=== PATIENT | female | born 1930 | race Caucasian/White ===

== ENCOUNTER 2017-03-18 15:21 | Outpatient (CLI) | payer MEDICARE ==
--- NOTE | 2017-03-18 17:27 | CT ---
EXAM: CT ANGIOGRAM OF THE THORACIC AORTA AND ABDOMINAL AORTA CT ANGIOGRAM OF THE PELVIS 03/18/17 HISTORY: Evaluate for aneurysm. Abnormal radiograph in [place]. COMPARISON: None. TECHNIQUE: CT angiogram of the thoracic and abdominal aorta performed in the axial plane. Sagittal and coronal t hree-dimensional reformatted images are submitted for interpretation. CORRELATION: Lumbar spine radiograph FINDINGS: CHEST CT: No mediastinal mass, lymphadenopathy, or hematoma. Heart is enlarged. There are coronary artery calci fications. No significant pericardial fluid. Trachea and central bronchi are patent. Mild emphysematous changes involving both upper lobes. Focal area of atelectasis in the lingula. No suspicious masses or consolidation. No pleural effusion. No pn eumothorax. ABDOMEN CT: There is hypoattenuation of the liver due to fatty infiltration. Hypodensities in the right hepatic l obe are too small to characterize. The spleen, pancreas, and adrenal glands have appropriate arterial phase enhancement. There is symmetric enhancement of the kidneys. There is a simple cyst in the left kidney measuring 13 mm. Bilaterally, no obstructive uropathy. No gastrohepatic, retrocrural or periportal lymphadenopathy. No mesenteric mass, lymphadenopathy, free air or free fluid. Limited evaluation of the alimentary can al due to lack of oral contrast. Questionable mass in the gastric cardia. Small hiatal hernia is note d. Multiple normal caliber small bowel loops. Ileocecal junction appears to be normal. Colon is unrem arkable. There are diverticula in the sigmoid colon, without evidence of diverticulitis. PELVIC CT: No mass, lymphadenopathy, free air or free fluid. Urinary bladder is unremarkable. Uterus and adnexal structures are unremarkable. CT ANGIOGRAM: The ascending thoracic aorta, aortic arch, and descending thoracic aorta have an overall normal cours e and caliber. There is atherosclerosis with a combination of calcified and noncalcified plaque. No a neurysm. No dissection. The origins of the great vessels of the neck appear to be grossly unremarkabl e. The suprarenal abdominal aorta demonstrate atherosclerosis without evidence of aneurysmal dilatati on. There is short segment mild stenosis involving the abdominal aorta just inferior to the origin of both renal arteries. Beyond this area of narrowing, there is evidence of aneurysmal dilatation measu ring 3.4 cm anterior posterior x 3.4 cm mediolateral x 5.6 cm craniocaudal. There is a predominantly noncalcified thrombus in this region of aneurysmal dilatation. Distal to this area, no evidence of an eurysmal dilatation. The aortic bifurcation and visualized iliac arteries demonstrate atherosclerotic disease. The celiac artery origin, superior mesenteric artery origin, and inferior mesenteric artery origin are unremarkable. Calcification in both renal artery ostia without significant stenosis. IMPRESSION: Aneurysmal dilatation of the infrarenal abdominal aorta. Consultation with cardiovascular surgery is recommended. POS: [facility]
== END 2017-03-18 15:22 | disposition home or self-care (01) ==
LOC: CT 15:21
PROVIDERS: ATTEND Nurse Practitioner Family
DX: Z13.6 Encounter for screening for cardiovascular disorders (principal); I71.4 Abdominal aortic aneurysm, without rupture
CPT/HCPCS: 71275; 74174

== ENCOUNTER 2017-10-15 12:31 | Outpatient (CLI) | payer MEDICARE ==
--- NOTE | 2017-10-15 14:40 | CT ---
CT ANGIOGRAM ABDOMEN AND PELVIS WITH IV CONTRAST AND 3D RECONSTRUCTIONS: Date: 10-15-17 History: Abdominal aortic aneurysm. Comparison: 03-18-17 FINDINGS: Dual-lead cardiac pacemaking leads are noted in place within the right ventricle and right atrial gaby endage. Atherosclerotic vascular calcifications and plaque are seen within the lower thoracic aorta as well a s involving the abdominal aorta and iliac arteries. Again noted is an infrarenal abdominal aortic ane urysm with essentric atherosclerotic plaque. The aneurysm on today's examination measures 3.8 cm AP x 3.2 cm transverse x 3.6 cm craniocaudal. Previous measurements were 3.5 cm AP x 3.4 cm transverse. T he craniocaudal dimension on the prior study was 5.7 cm. However, the aneurysm length on today's exam ination does not appear to be as large by measurement as noted above. The bilateral common iliac, ext ernal iliac, and common femoral arteries are patent with mild atherosclerotic plaque. The right inter nal iliac artery is patent, but there is moderate to severe narrowing at the origin of the left inter nal iliac artery. Single bilateral renal arteries are again present with atherosclerotic calcificatio ns present with mild to moderate narrowing at the origin and proximal right renal artery. There is mi ld to moderate narrowing at the origins of the celiac and superior mesenteric arteries. There is eith er severe focal narrowing at the origin versus occlusion at the origin of the LUCIANO. There is atelectasis in the region of the lingula. Lung bases are otherwise clear. Subcentimeter too small to characterize hypodense lesions are again seen in the right hepatic lobe. There is stable hypodense bilateral renal lesions, statistically likely representing small cysts. The spleen, fatty replaced pancreas, bilateral adrenal glands and decompressed urinary bladder demons trate a normal CT appearance. There is colonic diverticulosis. There is right convex scoliosis of the lumbar spine with prominent degenerative changes throughout th e lumbar spine. There is right lateral subluxation of L3 on L4. These findings are stable compared to prior exam. IMPRESSION: 1. Abdominal aortic aneurysm which does measure larger in size in AP dimensions measuring 3.8 cm on t gallo's exam and previously measured 3.5 cm. 2. Prominent atherosclerotic plaque seen throughout the abdominal aorta, iliac arteries, and involvin g the mesenteric vessels as described above. 3. Remainder of the findings are stable from prior examination. POS: [facility]
== END 2017-10-15 12:32 | disposition home or self-care (01) ==
LOC: CT 12:31
PROVIDERS: ATTEND Thoracic Surgery (Cardiothoracic Vascular Surgery)
DX: I71.4 Abdominal aortic aneurysm, without rupture (principal); I70.0 Atherosclerosis of aorta; I70.8 Atherosclerosis of other arteries; M41.86 Other forms of scoliosis, lumbar region; M47.896 Other spondylosis, lumbar region; S33.130A Subluxation of L3/L4 lumbar vertebra, initial encounter
CPT/HCPCS: 74174; 82565

== ENCOUNTER 2020-02-22 21:54 | Observation (INO) | payer MEDICARE ==
[2020-02-22] MEDS ORDERED: Lorazepam 2 MG/ML VIAL ONE (22:34)
[2020-02-22] MEDS ORDERED: Meclizine HCl 25 MG TAB ONE (22:36)
[2020-02-22 22:51] LABS: #Basophils 0.1 thou/uL (0.0-0.2); #Eosinphils 0.2 thou/uL (0.0-0.7); #Lymphocytes 1.9 thou/uL (1.20-3.40); #Monocytes 0.7 thou/uL (0.11-0.59); #Neutrophils 6.8 thou/uL (1.40-6.50); %Basophils 0.7 % (0.0-1.0); %Eosinophils 1.8 % (0.0-10.0); %Lymphocytes 19.4 % (21.0-51.0); %Monocytes 6.9 % (0.0-10.0); %Neutrophils 71.3 % (42.0-75.0); Hemoglobin 13.9 g/dL (12.0-16.0); Mean Corpuscular HGB CONC 32.6 g/dL (32.0-36.0); Mean Corpuscular Hemoglobin 32.1 pg (27.0-31.0); Mean Corpuscular Volume 98.6 fL (78.0-98.0); Mean Platelet Volume 8.1 fL (7.4-10.4); Platelet Count 182 thou/uL (130-400); RBC Distribution Width 11.9 % (11.5-14.5); Red Blood Cell (RBC) Count 4.33 mill/uL (4.20-5.40); White Blood Cell (WBC) Count 9.6 thou/uL (4.8-10.8)
[2020-02-22 23:12] LABS: ALT (SGPT) 7 U/L (8-55); AST (SGOT) 15 U/L (5-34); Albumin 3.7 g/dL (3.4-4.8); Alkaline Phosphatase 94 U/L (40-110); Anion Gap 17 mmol/L (10-20); BUN (Urea Nitrogen) 21 mg/dL (9.8-20.1); Bilirubin, Total 0.5 mg/dL (0.2-1.2); Calc. Creatinine Clearance 0 mL/min (70-130); Carbon Dioxide 24 mmol/L (23-31); Chloride 102 mmol/L (98-107); Globulin 3.4 g/dL (2.4-3.5); Glucose 201 mg/dL (83-110); Potassium 3.7 mmol/L (3.5-5.1); Protein, Total 7.1 g/dL (6.0-8.3); Sodium 139 mmol/L (136-145)
[2020-02-23 01:14] LABS: Bacteria/HPF None Seen HPF (None Seen); Bilirubin Negative (Negative); Blood, Urine Trace (Negative); Clarity Clear (Clear); Glucose, Urine (Dipstick) 200 mg/dL (Negative); Ketone, Urine Negative (Negative); Leukocyte Negative Leu/uL (Negative); Nitrite Negative (Negative); Protein, Urine (Dipstick) Negative (Neg-Trace); Squamous Epithelial None Seen HPF (0-3); Urobilinogen Normal mg/dL (Less than 2); WBC/HPF None Seen HPF (0-3); pH, Urine 7.5 (5.0-9.0)
[2020-02-23] MEDS ORDERED: Aspirin 325 MG TAB ONE (02:34)
[2020-02-23] MEDS ORDERED: Labetalol HCl 100 MG/20 ML VIAL SLOW IVP PRN (02:55)
[2020-02-23] MEDS ORDERED: Calcium Carbonate 500 MG ChewTAB PO PRN (03:08)
[2020-02-23] MEDS ORDERED: Acetaminophen 650 MG Suppository PR PRN (03:08)
[2020-02-23] MEDS ORDERED: Ondansetron ODT 4 MG TAB PO PRN (03:08)
[2020-02-23] MEDS ORDERED: Acetaminophen 325 MG TAB PO PRN (03:08)
[2020-02-23] MEDS ORDERED: Ondansetron PF 4 MG/2 ML Vial IVP PRN (03:08)
[2020-02-23] MEDS ORDERED: Meclizine HCl 12.5 MG TAB PO PRN (03:11)
--- NOTE | 2020-02-23 03:11 | PDOC.HHP ---
Hospitalist HPI - History of Present Illness vertigo History of Present Illness: Case of an 89y/o female with a pmhx of PPM who comes to hospital due to acute onset of weakness with associated dizziness. patient refers she was on her usual state of health until today when she went to the bathroom and got up, she had an episode of generalise weakness with associated dizzyness lightheadedness and nausea. Patient denies having any episode like this in the past, but she also denies significant history however she does have a pacemaker. patient is a poor historian and has some memory issues. patient denies any LOC or motor/sensorial deficit Hospitalist ROS - Review of Systems All other systems reviewed; all pertinent +/- noted in HPI/Subj Hospitalist History - Past Surgical History Other Surgical History: pt cannot recall - Family History Family History: reports: no pertinent history - Social History Smoking Status: Former smoker Alcohol: reports: None Drugs: reports: none Living Situation: With Family - Exam General Appearance: NAD, awake alert Eye: PERRL, anicteric sclera ENT: normocephalic atraumatic, no oropharyngeal lesions Neck: supple, symmetric, no JVD Heart: RRR, no murmur, no gallops Respiratory: CTAB, no wheezes, no rales Gastrointestinal: soft, non-tender, non-distended Extremities: no cyanosis, no clubbing, no edema Skin: normal turgor, no lesions, no rashes Neurological: cranial nerve grossly intact, normal sensation to touch Musculoskeletal: normal tone, normal strength, no muscle wasting Psychiatric: normal affect, normal behavior, A&O x 3 Hospitalist Results - Labs Result Diagrams: 02/22/20 22:18 02/22/20 22:18 Lab results: WBC 9.6 thou/uL (4.8-10.8) 02/22/20 22:18 Hgb 13.9 g/dL (12.0-16.0) 02/22/20 22:18 Hct 42.7 % (36.0-47.0) 02/22/20 22:18 MCV 98.6 fL (78.0-98.0) H 02/22/20 22:18 Plt Count 182 thou/uL (130-400) 02/22/20 22:18 Neutrophils % 71.3 % (42.0-75.0) 02/22/20 22:18 Sodium 139 mmol/L (136-145) 02/22/20 22:18 Potassium 3.7 mmol/L (3.5-5.1) 02/22/20 22:18 Chloride 102 mmol/L (98-107) 02/22/20 22:18 Carbon Dioxide 24 mmol/L (23-31) 02/22/20 22:18 BUN 21 mg/dL (9.8-20.1) H 02/22/20 22:18 Creatinine 1.59 mg/dL (0.6-1.1) H 02/22/20 22:18 Glucose 201 mg/dL (83-110) H 02/22/20 22:18 Calcium 9.0 mg/dL (7.8-10.44) 02/22/20 22:18 Total Bilirubin 0.5 mg/dL (0.2-1.2) 02/22/20 22:18 AST 15 U/L (5-34) 02/22/20 22:18 ALT 7 U/L (8-55) L 02/22/20 22:18 Alkaline Phosphatase 94 U/L (40-110) 02/22/20 22:18 Troponin I 0.019 ng/mL (< 0.028) 02/22/20 22:18 Serum Total Protein 7.1 g/dL (6.0-8.3) 02/22/20 22:18 Albumin 3.7 g/dL (3.4-4.8) 02/22/20 22:18 Urine Ketones Negative mg/dL (Negative) 02/23/20 00:45 Urine Blood Trace (Negative) A 02/23/20 00:45 Urine Nitrite Negative (Negative) 02/23/20 00:45 Ur Leukocyte Esterase Negative Afia/uL (Negative) 02/23/20 00:45 Urine RBC 7-10 HPF (0-3) A 02/23/20 00:45 Urine WBC None Seen HPF (0-3) 02/23/20 00:45 Ur Squamous Epith Cells None Seen HPF (0-3) 02/23/20 00:45 Urine Bacteria None Seen HPF (None Seen) 02/23/20 00:45 Hospitalist H&P A/P - Problem (1) CVA (cerebral vascular accident) Code(s): I63.9 - CEREBRAL INFARCTION, UNSPECIFIED Status: Acute (2) KWAN (acute kidney injury) Code(s): N17.9 - ACUTE KIDNEY FAILURE, UNSPECIFIED Status: Acute - Plan Plan: Case of an 89y/o female with the stated pmhx who present to hospital due to vertigo, admitted as obs to r/o posterior stroke cva - head ct negative - will start asa + statin for secondary prevention - 2d echo - mri - carotid doppler - permissive hypertension - neurology evaluation - neuro checks - permissive hypertension kwan - creatinine elevated at 1.59 - will start ivfs - f/u renal function and u/o
[2020-02-23] MEDS: Lactated Ringer's 1,000 ML IV SCH ×2 (04:07→08:23)
[2020-02-23 04:56] VITALS: BMI 17.8
[2020-02-23 05:27] LABS: Hemoglobin A1c 5.4 % (4.0-6.0)
[2020-02-23 05:43] LABS: ALT (SGPT) Less than 7 U/L (8-55); AST (SGOT) 12 U/L (5-34); Albumin 3.2 g/dL (3.4-4.8); Alkaline Phosphatase 83 U/L (40-110); Anion Gap 15 mmol/L (10-20); BUN (Urea Nitrogen) 19 mg/dL (9.8-20.1); Bilirubin, Total 0.4 mg/dL (0.2-1.2); Calc. Creatinine Clearance 21 mL/min (70-130); Calcium 8.3 mg/dL (7.8-10.44); Carbon Dioxide 22 mmol/L (23-31); Cardiac Risk 3.9 (Less than 4.5); Chloride 106 mmol/L (98-107); Cholesterol 158 mg/dl (< 200 Desired); Glucose 140 mg/dL (83-110); HDL Cholesterol 41 mg/dL (>60 Neg Risk); LDL Cholesterol, Calculated 87 mg/dL; Potassium 4.6 mmol/L (3.5-5.1); Protein, Total 6.2 g/dL (6.0-8.3); Sodium 138 mmol/L (136-145); Triglycerides 151 mg/dL (Less than 150)
[2020-02-23 06:09] LABS: Band 6 % (5-11); Hemoglobin 12.7 g/dL (12.0-16.0); Lymphocytes 13 % (21-51); MDiff Complete? YES; Mean Corpuscular HGB CONC 32.7 g/dL (32.0-36.0); Mean Corpuscular Hemoglobin 32.3 pg (27.0-31.0); Mean Corpuscular Volume 98.7 fL (78.0-98.0); Mean Platelet Volume 7.8 fL (7.4-10.4); Monocytes 4 % (0-10); Neutrophil 77 % (42-75); Platelet Count 181 thou/uL (130-400); Platelet Morphology Comment Appears Adequate; RBC Distribution Width 11.8 % (11.5-14.5); Red Blood Cell (RBC) Count 3.93 mill/uL (4.20-5.40); White Blood Cell (WBC) Count 7.9 thou/uL (4.8-10.8)
[2020-02-23] MEDS: Sodium Chloride 0.9% 1,000 ML IV SCH (06:15)
[2020-02-23 06:43] LABS: Troponin I 0.059 ng/mL (< 0.028)
--- NOTE | 2020-02-23 07:49 | RAD ---
PORTABLE CHEST: DATE: 02/22/2020. PROVIDED CLINICAL HISTORY: Dizziness, nausea, and weakness. FINDINGS: Comparison 01/01/2012. Cardiac and mediastinal silhouette is within normal limits. Atherosclerosis o f left subclavian cardiac pacing device again noted. No focal consolidation, pleural fluid, or pneum othorax apparent. IMPRESSION: No evidence for an acute cardiopulmonary process. POS: [facility]
[2020-02-23] MEDS: Enoxaparin Sodium 30 MG/0.3 ML SYRINGE SC SCH (08:18)
[2020-02-23] MEDS: Aspirin 81 mg Enteric Coated Tablet PO SCH (08:18)
--- NOTE | 2020-02-23 08:41 | CT ---
CT BRAIN: DATE: 02/22/2020. PROVIDED CLINICAL HISTORY: Weakness and dizziness. FINDINGS: Comparison 08/30/2012. The ventricular system appears normal in size and morphology. There is no evid ence for intracranial hemorrhage or mass effect. There is age-indeterminate lacunar infarction invol ving the right thalamus. Chronic microvascular ischemic changes are again seen involving the cerebra l white matter. There is opacification of the visualized portions of the left maxillary sinus with a ssociated maxillary sinus wall thickening. The extracranial soft tissues and osseous structures appe ar otherwise unremarkable. IMPRESSION: 1. No evidence for intracranial hemorrhage or mass effect. 2. There is age-indeterminate lacunar infarction involving the right thalamus. POS: [facility]
[2020-02-23] MEDS ORDERED: Aspirin Chewable 81 MG TAB PO SCH (09:00)
--- NOTE | 2020-02-23 11:29 | ULT ---
BILATERAL CAROTID DOPPLER ULTRASOUND: HISTORY: Weakness, dizziness, vertigo, CVA. TECHNIQUE: Au scale ultrasound with color flow and spectral Doppler imaging of the extracranial carotid artery systems is performed bilaterally. FINDINGS: There is plaque formation on either side. The peak systolic velocity in the right ICA measures 92 cm/s with an end-diastolic velocity of 21 cm/ s and a systolic ratio of 1.85. The peak systolic velocity in the left ICA measures 67 cm/s with an end-diastolic velocity of 13 cm/s and a systolic ratio of 1.06. Flow in both vertebral arteries remains antegrade. IMPRESSION: No evidence of hemodynamically significant stenosis. POS: [facility]
[2020-02-23 12:00] LABS: Troponin I 0.049 ng/mL (< 0.028)
--- NOTE | 2020-02-23 12:32 | PDOC.HOSPP ---
- Subjective Encounter Date: 02/23/20 Encounter Time: 10:00 Subjective: is getting echo done no specific weakness, sob or palp is moving all extremities was sitting on toilet seat when she felt dizzy and didn't want to move due to fear of falling, ems was summoned per patient - Objective Vital Signs & Weight: Vital Signs (12 hours) Temp Pulse Resp BP Pulse Ox 02/23/20 11:42 98.1 F 60 16 191/89 H 97 02/23/20 07:08 97.6 F 63 18 194/84 H 100 02/23/20 02:22 96.1 F L 67 16 165/78 H 96 Weight Admit Weight 106 lb 14.4 oz Weight 106 lb 14.4 oz I&O: 02/22/20 02/23/20 02/24/20 06:59 06:59 06:59 Intake Total 500 240 Output Total 250 Balance 250 240 Result Diagrams: 02/23/20 04:58 02/23/20 04:58 Hospitalist ROS - Medication Medications: Active Medications Generic Name Dose Route Start Last Admin Trade Name Nikolaiq PRN Reason Stop Dose Admin Aspirin 324 mg 02/23/20 09:00 02/23/20 08:18 Aspirin Chewable 81 Mg Tab PO 02/23/20 15:00 Not Given DAILY JAYCE Aspirin 81 mg 02/23/20 09:00 02/23/20 08:18 Aspirin 81 Mg Enteric Coated Tablet PO 81 mg DAILY JAYCE Administration Enoxaparin Sodium 30 mg 02/23/20 09:00 02/23/20 08:18 Enoxaparin Sodium 30 Mg/0.3 Ml Syringe SC 30 mg 0900 JAYCE Administration Lactated Ringer's 1,000 mls @ 150 mls/hr 02/23/20 03:00 02/23/20 08:23 Lactated Ringer's IV 02/23/20 15:00 Not Given .Q6H40M JAYCE Sodium Chloride 1,000 mls @ 50 mls/hr 02/23/20 04:45 02/23/20 06:15 Normal Saline 0.9% IV 1,000 mls .Q20H JAYCE Administration - Exam General Appearance: awake alert Eye: PERRL, anicteric sclera ENT: no oropharyngeal lesions, moist mucosa Neck: supple, no JVD Heart: RRR, no murmur Respiratory: no wheezes, no rales Gastrointestinal: soft, non-tender, non-distended, normal bowel sounds Extremities: no cyanosis, no edema Neurological: cranial nerve grossly intact, no focal deficits Hosp A/P (1) TIA (transient ischemic attack) Code(s): G45.9 - TRANSIENT CEREBRAL ISCHEMIC ATTACK, UNSPECIFIED Status: Acute (2) Dizziness Code(s): R42 - DIZZINESS AND GIDDINESS Status: Resolved (3) HTN (hypertension) Code(s): I10 - ESSENTIAL (PRIMARY) HYPERTENSION Status: Chronic Qualifiers: Hypertension type: essential hypertension Qualified Code(s): I10 - Essential (primary) hypertension (4) H/O cardiac pacemaker Code(s): Z95.0 - PRESENCE OF CARDIAC PACEMAKER Status: Chronic (5) Dyslipidemia Code(s): E78.5 - HYPERLIPIDEMIA, UNSPECIFIED Status: Chronic (6) KWAN (acute kidney injury) Code(s): N17.9 - ACUTE KIDNEY FAILURE, UNSPECIFIED Status: Acute - Plan gentle iv hydration, orthostatic BP await MRI, clinically has no signs of cva with equal strength on both sides, is right handed echo shows normal ef, no obvious thrombus continue asp, lipitor ldl is 87 PT to mobilize as tolerated will need HH with PT, await PT eval
[2020-02-23 12:40] LABS: SARS-CoV-2 MS2 Positive; SARS-CoV-2 N Gene Negative; SARS-CoV-2 S Gene Negative; SARS-CoV-2 by NAA Not Detected (NotDetected); SARS-CoV-2 orf1ab Negative
--- NOTE | 2020-02-23 13:25 | CON ---
NEUROLOGY CONSULTATION DATE OF CONSULTATION: 02/23/2020 REASON FOR CONSULTATION: Dizziness/vertigo. HISTORY OF PRESENT ILLNESS: Ms. Rosa Isela Sotomayor is an 89-year-old female with medical history significant for hypertension and pacemaker placement, who presented to the hospital with acute onset generalized weakness with dizziness. Pe patient, she was in her usual state of health until yesterday when she went to the restroom, and at that time, she had an episode of generalized weakness associated with dizziness, lightheadedness, and nausea. The patient denies any prior episodes like this in the past. She denies any focal weakness, focal paresthesias, nausea, vomiting, headache, chest pain, abdominal pain, recent illness or recent exposure to COVID-19. The patient does have memory issues and is a poor historian. She denies any abnormal seizure activity or loss of consciousness. REVIEW OF SYSTEMS: All systems reviewed and were negative except the pertinent positives and negatives mentioned in the HPI. PAST SURGICAL HISTORY: Status post pacemaker placement. FAMILY HISTORY: No significant family history. SOCIAL HISTORY: The patient lives with her family. Denies alcohol, illegal drug use. She is a former smoker. Vital Signs & Weight: Vital Signs (12 hours) Temp Pulse Resp BP Pulse Ox 02/23/20 11:42 98.1 F 60 16 191/89 H 97 02/23/20 07:08 97.6 F 63 18 194/84 H 100 02/23/20 02:22 96.1 F L 67 16 165/78 H 96 Weight Admit Weight 106 lb 14.4 oz Weight 106 lb 14.4 oz I&O: 02/22/20 02/23/20 02/24/20 06:59 06:59 06:59 Intake Total 500 240 Output Total 250 Balance 250 240 Active Medications Generic Name Dose Route Start Last Admin Trade Name Freq PRN Reason Stop Dose Admin Aspirin 324 mg 02/23/20 09:00 02/23/20 08:18 Aspirin Chewable 81 Mg Tab PO 02/23/20 15:00 Not Given DAILY JAYCE Aspirin 81 mg 02/23/20 09:00 02/23/20 08:18 Aspirin 81 Mg Enteric Coated Tablet PO 81 mg DAILY JAYCE Administration Enoxaparin Sodium 30 mg 02/23/20 09:00 02/23/20 08:18 Enoxaparin Sodium 30 Mg/0.3 Ml Syringe SC 30 mg 0900 JAYCE Administration Lactated Ringer's 1,000 mls @ 150 mls/hr 02/23/20 03:00 02/23/20 08:23 Lactated Ringer's IV 02/23/20 15:00 Not Given .Q6H40M JAYCE Sodium Chloride 1,000 mls @ 50 mls/hr 02/23/20 04:45 02/23/20 06:15 Normal Saline 0.9% IV 1,000 mls .Q20H JAYCE Administration PHYSICAL EXAMINATION: General Appearance: awake alert Eye: PERRL, anicteric sclera ENT: no oropharyngeal lesions, moist mucosa Neck: supple, no JVD Heart: RRR, no murmur Respiratory: no wheezes, no rales Gastrointestinal: soft, non-tender, non-distended, normal bowel sounds Extremities: no cyanosis, no edema Neurological: Mental status, the patient is alert and oriented to person, place, and time. Speech is clear. Recent and remote memory seems intact. Cranial nerves 2 through 12 intact. Motor, muscle tone, and bulk are normal. Moving all 4 extremities equally and symmetrically. Sensory intact. Cerebellar, finger-nose testing intact. Gait deferred due to patient's safety. LABORATORY DATA: Recent data reviewed. It is significant for acute kidney injury with a BUN of 21, creatinine of 1.59, and hyperglycemia 201. Lab results: WBC 9.6 thou/uL (4.8-10.8) 02/22/20 22:18 Hgb 13.9 g/dL (12.0-16.0) 02/22/20 22:18 Hct 42.7 % (36.0-47.0) 02/22/20 22:18 MCV 98.6 fL (78.0-98.0) H 02/22/20 22:18 Plt Count 182 thou/uL (130-400) 02/22/20 22:18 Neutrophils % 71.3 % (42.0-75.0) 02/22/20 22:18 Sodium 139 mmol/L (136-145) 02/22/20 22:18 Potassium 3.7 mmol/L (3.5-5.1) 02/22/20 22:18 Chloride 102 mmol/L (98-107) 02/22/20 22:18 Carbon Dioxide 24 mmol/L (23-31) 02/22/20 22:18 BUN 21 mg/dL (9.8-20.1) H 02/22/20 22:18 Creatinine 1.59 mg/dL (0.6-1.1) H 02/22/20 22:18 Glucose 201 mg/dL (83-110) H 02/22/20 22:18 Calcium 9.0 mg/dL (7.8-10.44) 02/22/20 22:18 Total Bilirubin 0.5 mg/dL (0.2-1.2) 02/22/20 22:18 AST 15 U/L (5-34) 02/22/20 22:18 ALT 7 U/L (8-55) L 02/22/20 22:18 Alkaline Phosphatase 94 U/L (40-110) 02/22/20 22:18 Troponin I 0.019 ng/mL (< 0.028) 02/22/20 22:18 Serum Total Protein 7.1 g/dL (6.0-8.3) 02/22/20 22:18 Albumin 3.7 g/dL (3.4-4.8) 02/22/20 22:18 Urine Ketones Negative mg/dL (Negative) 02/23/20 00:45 Urine Blood Trace (Negative) A 02/23/20 00:45 Urine Nitrite Negative (Negative) 02/23/20 00:45 Ur Leukocyte Esterase Negative Afia/uL (Negative) 02/23/20 00:45 Urine RBC 7-10 HPF (0-3) A 02/23/20 00:45 Urine WBC None Seen HPF (0-3) 02/23/20 00:45 Ur Squamous Epith Cells None Seen HPF (0-3) 02/23/20 00:45 Urine Bacteria None Seen HPF (None Seen) 02/23/20 00:45 ASSESSMENT AND PLAN: (1) TIA (transient ischemic attack) Code(s): G45.9 - TRANSIENT CEREBRAL ISCHEMIC ATTACK, UNSPECIFIED Status: Acute (2) Dizziness Code(s): R42 - DIZZINESS AND GIDDINESS Status: Resolved (3) HTN (hypertension) Code(s): I10 - ESSENTIAL (PRIMARY) HYPERTENSION Status: Chronic Qualifiers: Hypertension type: essential hypertension Qualified Code(s): I10 - Essential (primary) hypertension (4) H/O cardiac pacemaker Code(s): Z95.0 - PRESENCE OF CARDIAC PACEMAKER Status: Chronic (5) Dyslipidemia Code(s): E78.5 - HYPERLIPIDEMIA, UNSPECIFIED Status: Chronic (6) KWAN (acute kidney injury) Code(s): N17.9 - ACUTE KIDNEY FAILURE, UNSPECIFIED Status: Acute Ms. Rosa Isela Sotomayor is an 89-year-old female with medical history significant for pacemaker placement, who presented with vertigo, admitted to rule out posterior circulation stroke/TIA, most likely transient ischemic attack. The patient is back to her baseline and denies any dizziness at this time. Head CT reviewed, which was negative for acute intracranial pathology. Consider MRI of the brain to rule out acute intracranial process. A 2D echo to evaluate for left ventricular ejection fraction and carotid Dopplers to rule out hemodynamically significant stenosis. Permissive control of blood pressure at this time. Strict control of blood glucose. Neuro checks every 4 hours. Continue home medications. Continue medical management per primary team. PT/OT/Speech. DVT prophylaxis. We will continue to follow. Plan discussed in detail with the patient and the nursing staff. We will continue to follow. Thank you for the consult. Job ID: [id number] MTDD
--- NOTE | 2020-02-23 14:53 | PDOC.EEG ---
Neurology EEG Report - Report Report: This EEG was performed using 24 channel [employer] video EEG machine with 24 disc electrodes. This was an extended 2 hours 5 minutes of inpatient video EEG recording. Digital analysis of the EEG was done for spike and seizure detection which revealed no abnormalities. Background: The posterior background rhythm was not observed. Low amplitude EEG with excessive beta activity intermixed with the background. Hyperventilation: Not performed. Photic Stimulation: No significant response. Sleep: No stage change is observed. EEG Diagnosis: Absence of Posterior background rhythm. Clinical Interpretation: This EEG is consistent with mild generalized nonspecific cerebral dysfunction.
--- NOTE | 2020-02-23 16:31 | MRI ---
MRI BRAIN NONCONTRAST: DATE: 02/23/20 HISTORY: 89-year-old female with TIA. Weakness and dizziness. COMPARISON: No prior brain MRIs. FINDINGS: Ventricles are normal in size and configuration. There are moderate chronic ischemic white matter changes in the cerebrum. Tiny old cortical infarctions, one in the right middle frontal gyrus and the other at a right upper p arietal gyrus near pars marginalis. No restricted diffusion to indicate any acute infarction. Several tiny old lacunar infarctions in the bilateral thalami. Several small and tiny old infarctions in the bilateral cerebellar hemispheres, right greater than le ft. There are also tiny old lacunar infarctions in the pablo versus chronic ischemic white matter changes. Diffuse brain parenchymal volume loss. No major recent or remote intra-axial hemorrhage. No mass effect, midline, extra-axial fluid collection, or restricted diffusion. Total opacification of left maxillary sinus. IMPRESSION: 1. Involutional changes and moderate chronic ischemic white matter changes. 2. Multiple tiny old lacunar infarctions in bilateral thalami and brainstem. 3. Multiple tiny and small old infarctions in the cerebellum, right greater than left. 4. No acute findings. MEME Short POS: [facility]
[2020-02-23] MEDS ORDERED: Atorvastatin Calcium 40 MG TAB PO SCH (21:00)
[2020-02-24] MEDS: Sodium Chloride 0.9% 1,000 ML IV SCH (01:56)
[2020-02-24 09:40] VITALS: BP 97/48
[2020-02-24] MEDS: Aspirin 81 mg Enteric Coated Tablet PO SCH (09:56)
[2020-02-24] MEDS: Enoxaparin Sodium 30 MG/0.3 ML SYRINGE SC SCH (09:57)
[2020-02-24 11:48] VITALS: TEMP 97.5
--- NOTE | 2020-02-24 16:34 | DIS ---
DATE OF ADMISSION: 02/23/2020 DATE OF DISCHARGE: 02/24/2020 DISCHARGE DISPOSITION: To home. PRIMARY DISCHARGE DIAGNOSES: 1. Dizziness, resolved. 2. Transient ischemic attack, resolved. SECONDARY DISCHARGE DIAGNOSES: 1. Hypertension. 2. History of pacemaker. 3. Dyslipidemia. 4. Acute kidney injury with dehydration on arrival, resolved. PROCEDURES DONE DURING HOSPITALIZATION: Chest x-ray done showed no acute cardiopulmonary process. CT brain without contrast on admission showed no intracranial hemorrhage or mass effect. There was age-indeterminate lacunar infarct involving right thalamus. Carotid Doppler done on 02/23/2020 showed no hemodynamically significant stenosis. 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 There were no acute findings noted. Echo with 2D Doppler showed ejection fraction of 60%-65%. There was diastolic dysfunction. EEG done on 02/23/2020 showed findings consistent with mild generalized nonspecific cerebral dysfunction. H and H 12 and 38, platelet count 181, MCV 98, white count of 7.9. Discharge BUN and creatinine are 19 and 1.4, LDL 87, total cholesterol 158, triglycerides 151, HDL 41. Albumin 3.2. COVID- 19 PCR was not detected. UA did not reveal any sign of infection. DISCHARGE MEDICATIONS: 1. Aspirin 325 mg p.o. daily. 2. Lipitor 20 mg p.o. at bedtime. 3. Clonidine p.r.n. ALLERGIES: ALLERGIC TO CEFUROXIME, HYDROCODONE, PENICILLIN, DOXYCYCLINE, LEVAQUIN. DISCHARGE PLAN: The patient to follow up with , her primary care physician in 1 week. She needs to check blood pressure and pulse twice daily and record for a period of 10 days to follow up with her primary care physician. BRIEF COURSE DURING HOSPITALIZATION: The patient initially was brought to emergency room after she had an episode of dizziness while she was on the toilet seat and was scared to get up with risk of fall. EMS was summoned and patient was brought here. She has had complete stroke workup done, which has not revealed any acute CVA. The patient had moderate dehydration with acute kidney injury, which has resolved with fluid hydration. There is no sign of infection. The patient has ambulated 200 feet with a rolling walker with physical therapy during her stay here. She has remained neurologically and hemodynamically stable. Ms. Светлана Natarajan is wanting to go home, come what may today. I have tried to call the patient's family on the numbers provided on [employer] and was unable to reach them. Please note I have seen and examined the patient on the day of discharge. The patient was evaluated by Dr. Montalvo for Neurology as well. Job ID: [id number] MTDD
--- NOTE | 2020-02-26 12:17 | EKG ---
Test Reason : Blood Pressure : / mmHG Vent. Rate : 061 BPM Atrial Rate : 061 BPM P-R Int : 198 ms QRS Dur : 074 ms QT Int : 444 ms P-R-T Axes : 000 047 078 degrees QTc Int : 446 ms Electronic atrial pacemaker Nonspecific ST and T wave abnormality Abnormal ECG Confirmed by PIETER COELLO ([id number]), editor & co founder MIKI ROBERTS ([id number]) on 02/26/2020 12:17:16 PM Referred By: Confirmed By:PIETER COELLO
== END 2020-02-24 13:39 | disposition home or self-care (01) ==
LOC: ERS 21:54 → 2SE 02-23 01:10
PROVIDERS: ADMIT Internal Medicine; ATTEND Internal Medicine
DX: G45.9 Transient cerebral ischemic attack, unspecified (principal); I10 Essential (primary) hypertension; N17.9 Acute kidney failure, unspecified; E78.5 Hyperlipidemia, unspecified; Z88.0 Allergy status to penicillin; Z88.1 Allergy status to other antibiotic agents; Z88.5 Allergy status to narcotic agent; Z95.0 Presence of cardiac pacemaker; Z87.891 Personal history of nicotine dependence; Z20.828 Contact with and (suspected) exposure to other viral communicable diseases
CPT/HCPCS: 70450; 70551; 71045; 80053 ×2; 80061; 83036; 84484 ×3; 85007; 85025; 85027; 93005; 93306; 93880; 94760; 95712; 95819; 95957; 97139; U0003; 36415; 81003; 81015; 87635; 96372; 96374; G0378; J1650; J2060

== ENCOUNTER 2021-04-15 18:16 | Emergency (ER) | payer MEDICARE ==
[2021-04-15] MEDS ORDERED: Lidocaine 1% (PF) 30 ML VIAL ONE (19:05)
[2021-04-15] MEDS ORDERED: Boostrix 0.5 ML (Tdap) VIAL ONE (19:31)
== END 2021-04-15 20:18 | disposition home or self-care (01) ==
LOC: ERS 18:16
DX: M70.22 Olecranon bursitis, left elbow (principal); Z87.891 Personal history of nicotine dependence
CPT/HCPCS: 20605; 87070; 87077; 87186; 87205; 90471; 90715; J2001

== ENCOUNTER 2021-12-10 14:48 | Inpatient (IN) | payer MEDICARE ==
[2021-12-10 16:39] LABS: #Basophils 0.1 thou/uL (0.0-0.2); #Eosinphils 0.1 thou/uL (0.0-0.7); #Lymphocytes 1.7 thou/uL (1.20-3.40); #Monocytes 0.6 thou/uL (0.11-0.59); #Neutrophils 5.7 thou/uL (1.40-6.50); %Basophils 0.8 % (0.0-1.0); %Eosinophils 0.8 % (0.0-10.0); %Lymphocytes 20.5 % (21.0-51.0); %Monocytes 7.4 % (0.0-10.0); %Neutrophils 70.6 % (42.0-75.0); Hemoglobin 12.7 g/dL (12.0-16.0); Mean Corpuscular HGB CONC 31.5 g/dL (32.0-36.0); Mean Corpuscular Hemoglobin 31.2 pg (27.0-31.0); Mean Platelet Volume 8.1 fL (7.4-10.4); Platelet Count 247 thou/uL (130-400); RBC Distribution Width 12.1 % (11.5-14.5); Red Blood Cell (RBC) Count 4.07 mill/uL (4.20-5.40); White Blood Cell (WBC) Count 8.1 thou/uL (4.8-10.8)
[2021-12-10 16:56] LABS: ALT (SGPT) Less than 7 U/L (8-55); AST (SGOT) 14 U/L (5-34); Albumin 3.5 g/dL (3.4-4.8); Alkaline Phosphatase 98 U/L (40-110); Anion Gap 13 mmol/L (10-20); BUN (Urea Nitrogen) 21 mg/dL (9.8-20.1); Bilirubin, Total 0.6 mg/dL (0.2-1.2); Calc. Creatinine Clearance 0 mL/min (70-130); Carbon Dioxide 25 mmol/L (23-31); Chloride 108 mmol/L (98-107); Estimated GFR 31; Globulin 3.5 g/dL (2.4-3.5); Glucose 108 mg/dL (83-110); Potassium 3.9 mmol/L (3.5-5.1); Sodium 142 mmol/L (136-145)
[2021-12-10 17:20] LABS: Bilirubin Negative (Negative); Blood, Urine Trace (Negative); Clarity Clear (Clear); Glucose, Urine (Dipstick) Normal (Negative); Ketone, Urine Negative (Negative); Leukocyte Negative Leu/uL (Negative); Nitrite Negative (Negative); Protein, Urine (Dipstick) 100 mg/dL (Neg-Trace); RBC/HPF 0-3 HPF (0-3); Specific Gravity, Urine 1.021 (1.002-1.036); Squamous Epithelial None Seen HPF (0-3); Urobilinogen Normal mg/dL (Less than 2); WBC/HPF 0-3 HPF (0-3); pH, Urine 5.5 (5.0-9.0)
[2021-12-10 17:22] LABS: CKMB 5.3 ng/mL (0-6.6)
[2021-12-10 17:22] LABS: Bacteria/HPF 1+ HPF (None Seen)
[2021-12-10] MEDS ORDERED: Acetaminophen 325 MG TAB PO PRN (18:28)
[2021-12-10] MEDS ORDERED: Ondansetron PF 4 MG/2 ML Vial IVP PRN (18:28)
[2021-12-10] MEDS ORDERED: Guaifenesin DM 100-10/5 ML UDCUP PO PRN (18:28)
[2021-12-10] MEDS ORDERED: hydrALAZINE 20 MG/ML VIAL SLOW IVP PRN (19:37)
[2021-12-10] MEDS ORDERED: Nitroglycerin 2% Ointment 1 INCH/1 GM Packet ONE (19:40)
[2021-12-10] MEDS ORDERED: Furosemide 40 MG/4 ML VIAL ONE (19:40)
[2021-12-10] MEDS: Famotidine 20 MG TAB PO SCH (22:45)
[2021-12-10] MEDS: Atorvastatin Calcium 20 MG TAB PO SCH (22:45)
[2021-12-10 23:54] LABS: CKMB 7.9 ng/mL (0-6.6)
[2021-12-11 02:59] LABS: #Basophils 0.1 thou/uL (0.0-0.2); #Lymphocytes 1.4 thou/uL (1.20-3.40); #Monocytes 0.7 thou/uL (0.11-0.59); #Neutrophils 7.9 thou/uL (1.40-6.50); %Basophils 0.5 % (0.0-1.0); %Eosinophils 0.2 % (0.0-10.0); %Lymphocytes 14.2 % (21.0-51.0); %Monocytes 6.9 % (0.0-10.0); %Neutrophils 78.2 % (42.0-75.0); Hemoglobin 13.1 g/dL (12.0-16.0); Mean Corpuscular HGB CONC 31.8 g/dL (32.0-36.0); Mean Corpuscular Hemoglobin 31.4 pg (27.0-31.0); Mean Corpuscular Volume 98.7 fL (78.0-98.0); Mean Platelet Volume 8.2 fL (7.4-10.4); Platelet Count 248 thou/uL (130-400); RBC Distribution Width 12.2 % (11.5-14.5); Red Blood Cell (RBC) Count 4.16 mill/uL (4.20-5.40); White Blood Cell (WBC) Count 10.1 thou/uL (4.8-10.8)
[2021-12-11 03:23] LABS: Anion Gap 16 mmol/L (10-20); BUN (Urea Nitrogen) 21 mg/dL (9.8-20.1); Calc. Creatinine Clearance 18 mL/min (70-130); Calcium 9.2 mg/dL (7.8-10.44); Carbon Dioxide 26 mmol/L (23-31); Chloride 105 mmol/L (98-107); Estimated GFR 31; Glucose 131 mg/dL (83-110); Sodium 143 mmol/L (136-145)
[2021-12-11 03:29] LABS: Critical Call Chem Troponin I RESULT DECREASING; Troponin I 1.039 ng/mL (< 0.028)
[2021-12-11] MEDS: Furosemide 40 MG/4 ML VIAL SLOW IVP SCH ×2 (06:14→13:41)
[2021-12-11] MEDS ORDERED: Enoxaparin Sodium 30 MG/0.3 ML SYRINGE SC SCH (09:00)
[2021-12-11] MEDS ORDERED: Aspirin 325 MG TAB PO SCH (09:00)
[2021-12-11] MEDS ORDERED: Lisinopril 10 MG TAB PO SCH (09:00)
[2021-12-11] MEDS: Aspirin 81 mg Enteric Coated Tablet PO SCH (09:30)
[2021-12-11] MEDS ORDERED: Amlodipine 5 MG TAB PO SCH (10:30)
[2021-12-11] MEDS ORDERED: Melatonin 3 MG TAB PO PRN (20:21)
[2021-12-11] MEDS: Atorvastatin Calcium 20 MG TAB PO SCH (21:32)
[2021-12-11] MEDS: Famotidine 20 MG TAB PO SCH (21:32)
[2021-12-11] MEDS ORDERED: Clindamycin/D5W 900 MG in Premix Bag 1 BAG IVPB SCH (22:45)
[2021-12-11] MEDS ORDERED: Aztreonam 1 GM in Sodium Chloride 0.9% 100 ML IVPB SCH (22:45)
[2021-12-12 04:23] LABS: #Basophils 0.1 thou/uL (0.0-0.2); #Eosinphils 0.4 thou/uL (0.0-0.7); #Lymphocytes 2.9 thou/uL (1.20-3.40); #Neutrophils 5.5 thou/uL (1.40-6.50); %Basophils 0.8 % (0.0-1.0); %Eosinophils 3.6 % (0.0-10.0); %Lymphocytes 29.1 % (21.0-51.0); %Neutrophils 56.5 % (42.0-75.0); Hemoglobin 12.5 g/dL (12.0-16.0); Mean Corpuscular HGB CONC 31.8 g/dL (32.0-36.0); Mean Corpuscular Volume 97.6 fL (78.0-98.0); Platelet Count 244 thou/uL (130-400); Red Blood Cell (RBC) Count 4.03 mill/uL (4.20-5.40); White Blood Cell (WBC) Count 9.8 thou/uL (4.8-10.8)
[2021-12-12 04:28] LABS: Anion Gap 15 mmol/L (10-20); BUN (Urea Nitrogen) 34 mg/dL (9.8-20.1); Calc. Creatinine Clearance 12 mL/min (70-130); Calcium 8.3 mg/dL (7.8-10.44); Carbon Dioxide 25 mmol/L (23-31); Chloride 101 mmol/L (98-107); Estimated GFR 18; Glucose 100 mg/dL (83-110); Potassium 3.6 mmol/L (3.5-5.1); Sodium 137 mmol/L (136-145)
[2021-12-12] MEDS: Sodium Chloride 0.9% 1,000 ML IV SCH (05:41)
[2021-12-12] MEDS: Furosemide 40 MG/4 ML VIAL SLOW IVP SCH (07:15)
[2021-12-12] MEDS: Aspirin 81 mg Enteric Coated Tablet PO SCH (08:31)
[2021-12-12] MEDS: Lisinopril 5 MG TAB PO SCH ×2 (08:32→21:12)
[2021-12-12] MEDS ORDERED: Amlodipine 5 MG TAB PO SCH (09:00)
[2021-12-12] MEDS ORDERED: Vancomycin HCl 500 MG VIAL ONE (10:35)
[2021-12-12] MEDS ORDERED: Lidocaine 1% (PF) 30 ML VIAL ONE (10:35)
[2021-12-12] MEDS ORDERED: Clindamycin/D5W 600 mg/50 ml Premix Bag ONE (10:35)
[2021-12-12] MEDS ORDERED: Levofloxacin 500 mg/D5W 100 ml Premix Bag ONE (10:46)
[2021-12-12] MEDS ORDERED: Midazolam HCl 2 mg/2 ml Vial ONE (12:24)
[2021-12-12] MEDS: Atorvastatin Calcium 20 MG TAB PO SCH (21:11)
[2021-12-12] MEDS: Famotidine 20 MG TAB PO SCH (21:12)
[2021-12-13] MEDS: Sodium Chloride 0.9% 1,000 ML IV SCH (02:49)
[2021-12-13 04:41] LABS: #Basophils 0.1 thou/uL (0.0-0.2); #Eosinphils 0.3 thou/uL (0.0-0.7); #Lymphocytes 1.7 thou/uL (1.20-3.40); #Monocytes 0.7 thou/uL (0.11-0.59); #Neutrophils 4.7 thou/uL (1.40-6.50); %Basophils 0.8 % (0.0-1.0); %Eosinophils 3.6 % (0.0-10.0); %Lymphocytes 22.5 % (21.0-51.0); %Monocytes 9.4 % (0.0-10.0); %Neutrophils 63.6 % (42.0-75.0); Hemoglobin 13.5 g/dL (12.0-16.0); Mean Corpuscular HGB CONC 32.4 g/dL (32.0-36.0); Mean Corpuscular Hemoglobin 31.7 pg (27.0-31.0); Mean Corpuscular Volume 97.7 fL (78.0-98.0); Mean Platelet Volume 8.4 fL (7.4-10.4); Platelet Count 220 thou/uL (130-400); RBC Distribution Width 12.1 % (11.5-14.5); Red Blood Cell (RBC) Count 4.26 mill/uL (4.20-5.40); White Blood Cell (WBC) Count 7.4 thou/uL (4.8-10.8)
[2021-12-13 05:27] LABS: ALT (SGPT) Less than 7 U/L (8-55); AST (SGOT) 12 U/L (5-34); Albumin 3.2 g/dL (3.4-4.8); Alkaline Phosphatase 91 U/L (40-110); Anion Gap 12 mmol/L (10-20); BUN (Urea Nitrogen) 30 mg/dL (9.8-20.1); Bilirubin, Total 0.6 mg/dL (0.2-1.2); Calc. Creatinine Clearance 14 mL/min (70-130); Calcium 8.8 mg/dL (7.8-10.44); Carbon Dioxide 28 mmol/L (23-31); Chloride 104 mmol/L (98-107); Estimated GFR 23; Globulin 3.2 g/dL (2.4-3.5); Glucose 82 mg/dL (83-110); Potassium 3.6 mmol/L (3.5-5.1); Protein, Total 6.4 g/dL (5.8-8.1); Sodium 140 mmol/L (136-145)
[2021-12-13] MEDS: Lisinopril 5 MG TAB PO SCH (08:15)
[2021-12-13] MEDS: Aspirin 81 mg Enteric Coated Tablet PO SCH (08:15)
[2021-12-13] MEDS ORDERED: Potassium Chloride 20 MEQ TAB PO SCH (09:45)
[2021-12-13 12:51] VITALS: BMI 16.6
[2021-12-13] MEDS: Atorvastatin Calcium 20 MG TAB PO SCH (20:55)
[2021-12-13] MEDS: Famotidine 20 MG TAB PO SCH (20:55)
[2021-12-13 23:54] VITALS: BP 143/65; TEMP 98.8
[2021-12-14 07:46] LABS: Anion Gap 11 mmol/L (10-20); BUN (Urea Nitrogen) 32 mg/dL (9.8-20.1); Calc. Creatinine Clearance 15 mL/min (70-130); Calcium 9.1 mg/dL (7.8-10.44); Carbon Dioxide 27 mmol/L (23-31); Chloride 106 mmol/L (98-107); Estimated GFR 25; Glucose 93 mg/dL (83-110); Potassium 4.5 mmol/L (3.5-5.1); Sodium 139 mmol/L (136-145)
[2021-12-14] MEDS: Aspirin 81 mg Enteric Coated Tablet PO SCH (07:58)
[2021-12-14] MEDS ORDERED: Amlodipine 5 MG TAB PO SCH (09:00)
[2021-12-14] MEDS ORDERED: Rosuvastatin 20 MG TAB PO SCH (21:00)
== END 2021-12-14 12:26 | DRG 258 ==
LOC: ERS 14:48 → 2NO 18:21
PROVIDERS: ADMIT Hospitalist; ATTEND Internal Medicine
PROC: 0JPT0PZ Removal of Cardiac Rhythm Related Device from Trunk Subcutaneous Tissue and Fascia, Open Approach (ICD-10-PCS; principal; 2021-12-12)
PROC: 0JH606Z Insertion of Pacemaker, Dual Chamber into Chest Subcutaneous Tissue and Fascia, Open Approach (ICD-10-PCS; 2021-12-12)
DX: I13.0 Hypertensive heart and chronic kidney disease with heart failure and stage 1 through stage 4 chronic kidney disease, or unspecified chronic kidney disease (principal); I21.A1 Myocardial infarction type 2; I50.33 Acute on chronic diastolic (congestive) heart failure; N17.9 Acute kidney failure, unspecified; N39.0 Urinary tract infection, site not specified; N18.4 Chronic kidney disease, stage 4 (severe); Z20.822 Contact with and (suspected) exposure to COVID-19; E78.5 Hyperlipidemia, unspecified; Z88.5 Allergy status to narcotic agent; Z88.0 Allergy status to penicillin; Z88.1 Allergy status to other antibiotic agents; Z95.0 Presence of cardiac pacemaker
CPT/HCPCS: 33228; 36415; 70450; 71045; 80048; 80053; 81003; 81015; 82553; 83880; 84145; 84484; 85025; 93005; 93010; 93306; 96374; 99152; 99153; C1785; J1650; J1940; J1956; J2001; J2250; J3370; J3490; J7050; J7620; U0003; U0005